=== PATIENT | male | born 1965 | race Caucasian/White ===

== ENCOUNTER 2023-05-21 17:46 | Emergency (ER) | payer MEDICAID ==
[~2023-05-21] VITALS: Ht 188 cm; Wt 108.9 kg
[2023-05-21 18:18] VITALS: BP 147/82; PULSE 82; RESP 18; TEMP 98.3; O2SAT 96
[2023-05-21] MEDS: KETOROLAC 60 MG/2 ML VIAL IM ONE (19:07)
[2023-05-21] MEDS ORDERED: ACET-503 PO (20:22)
[2023-05-21] MEDS ORDERED: IBUP-2213 PO (20:22)
[2023-05-21 20:32] VITALS: BP 137/85; PULSE 82; RESP 17; TEMP 98; O2SAT 97
== END 2023-05-21 20:32 | disposition home or self-care (01) ==
LOC: MED 17:46
DX: S20.212A Contusion of left front wall of thorax, initial encounter (principal); S80.812A Abrasion, left lower leg, initial encounter; I10 Essential (primary) hypertension; Z98.890 Other specified postprocedural states; V89.2XXA Person injured in unspecified motor-vehicle accident, traffic, initial encounter; Y93.89 Activity, other specified; Y92.410 Unspecified street and highway as the place of occurrence of the external cause; Y99.8 Other external cause status
CPT/HCPCS: 73590; 96372; 99283; J1885